=== PATIENT | male | born 1990 | race Caucasian/White ===

== ENCOUNTER 2016-08-06 07:05 | Emergency (ER) | payer SELFPAY ==
[~2016-08-06] VITALS: Ht 172.7 cm; Wt 78.2 kg
[~2016-08-06 07:05] MED LIST: MELO15TA2 PO; ROBA750T3 PO; Z.0.NO CURRENT MEDS
[2016-08-06 07:07] VITALS: BP 126/72; PULSE 94; RESP 16; TEMP 100.1; O2SAT 96
--- NOTE | 2016-08-06 07:19 | PD ---
HPI Chief Complaint: Cold / Flu Symptoms Time Seen by Provider: 07:17 Travel History International Travel<30 days: No Contact w/Intl Traveler<30days: No Traveled to known affect area: No History of Present Illness HPI 26-year-old male with history of no significant past medical issues presents to the ER today because he has had 2 days history of fevers, 101 last night, coughing, sore throat, body aches, and diarrhea. He states that his sister has influenza. He denies any vomiting, chest pains, abdominal pains, shortness of breath, or any other symptoms. Modifying Factors: None Associated Signs & Symptoms: Fevers, body aches, sore throat, congestion, coughing, diarrhea Risk Factors: Contac, sister with influenza PFSH Past Medical History Medical History: Denies Significant Hx Heart Rhythm Problems: Yes (ABNORMAL EKG) Diminished Hearing: No Tetanus Vaccination: Unknown Past Surgical History Surgical History: No Previous Surgery Social History Alcohol Use: Yes (OCC) Tobacco Use: No Substance Use: No Allergies-Medications (Allergen,Severity, Reaction): Coded Allergies: No Known Allergies (Unverified , 08/06/16) Reported Meds & Prescriptions Reported Meds & Active Scripts Active No Active Prescriptions or Reported Medications Review of Systems Except as stated in HPI: all other systems reviewed are Neg Physical Exam Narrative GENERAL: Well-developed young white male patient currently in mild distress. Awake and oriented 3. SKIN: Focused skin assessment warm/dry. HEAD: Atraumatic. Normocephalic. EYES: Pupils equal and round. No scleral icterus. No injection or drainage. ENT: Mucosa pink and moist. Mild pharyngeal erythema with no exudates. Mild uvular edema. No uvular, palatal, or tonsillar deviation. Airway patent. Nasal turbinates appear normal without nasal blood, purulent drainage or septal hematoma. NECK: Trachea midline. No JVD. CARDIOVASCULAR: Regular rate and rhythm. No murmur appreciated. RESPIRATORY: No accessory muscle use. Clear to auscultation. Breath sounds equal bilaterally. GASTROINTESTINAL: Abdomen soft, non-tender, nondistended. Hepatic and splenic margins not palpable. MUSCULOSKELETAL: No obvious deformities. No clubbing. No cyanosis. No edema. NEUROLOGICAL: Awake and alert. No obvious cranial nerve deficits. Motor grossly within normal limits. Normal speech. PSYCHIATRIC: Appropriate mood and affect; insight and judgment normal. Data Data Last Documented VS Vital Signs Date Time Temp Pulse Resp B/P Pulse Ox O2 Delivery O2 Flow Rate FiO2 08/06/16 07:07 100.1 94 16 126/72 96 Orders Group A Rapid Strep Screen (08/06/16 07:14) Influenzae A/B Antigen (08/06/16 07:14) Strep Culture (Group A) (08/06/16 07:15) MDM Medical Decision Making Medical Screen Exam Complete: Yes Emergency Medical Condition: Yes Medical Record Reviewed: Yes Differential Diagnosis Sore throat, coughing, body aches, fevers, diarrheaviral syndrome versus influenza versus strep pharyngitis Narrative Course Patient has a sick contact with influenza. Flu test and rapid strep Was negative. However, considering sick contact in patient's symptoms, my plan would be to treat the patient for influenza. Return for any worsening in symptoms as necessary. The plan has been discussed with him and he states understanding. Diagnosis Primary Impression: Influenza Med/Other Pt SpecificInfo: Prescription(s) given Scripts Oseltamivir (Tamiflu)75 Mg Cap75 Mg PO BID 5 Days Ref 0 Prov:Kiley Mae MD 08/06/16 Ibuprofen (Motrin Ib)200 Mg [id number] Mg PO Q6H PRN (PAIN SCALE 1 TO 10) #28 TAB Ref 0 Prov:Kiley Mae MD 08/06/16 Disposition: 01 DISCHARGE HOME Condition: Stable Kiley Mae MD August 06, 2016 07:19
[2016-08-06] MEDS ORDERED: OSEL75 PO (07:46)
[2016-08-06] MEDS ORDERED: MOTR200T4 PO (07:46)
== END 2016-08-06 07:52 | disposition home or self-care (01) ==
LOC: PHED 07:05
DX: J11.1 Influenza due to unidentified influenza virus with other respiratory manifestations (principal); R19.7 Diarrhea, unspecified
CPT/HCPCS: 87081; 87804; 87880; 99283